=== PATIENT | male | born 1990 | race Caucasian/White ===

== ENCOUNTER 2017-12-11 18:11 | Emergency (ER) | payer SELFPAY ==
[~2017-12-11] VITALS: Ht 177.8 cm; Wt 115.7 kg
[2017-12-11 18:27] VITALS: BP 155/89
[2017-12-11] MEDS ORDERED: IBUPROFEN 800 MG TAB ONE (18:32)
--- NOTE | 2017-12-11 19:24 | NUR ---
27/M CAME IN W C/O SORE THROAT, POSTNASAL DISCHARGE, COUGHING AND FEVER X 2 DAYS. PT REPORTS FEVER OF 103.2 YESTERDAY AND HAS BEEN TAKING TYLENOL FOR CONTROL. CURRENTLY AFEBRILE. ALL LUNG SOUND CBTA, 20 RR EVEN AND UNLABORED. DENIES ANY OTHER PAIN, DENIES N/V/D, SOB/CP. DENIES OTHER PMH/RX/OTC
[2017-12-11] MEDS ORDERED: LIDOCAINE VISCOUS 2% 20 ML UDC PO ONE (19:40)
[2017-12-11] MEDS ORDERED: AMOXICILLIN 500 MG CAP PO ONE (19:40)
--- NOTE | 2017-12-11 20:09 | NUR ---
Patient discharged with v/s stable. Written and verbal after care instructions given and explained. Patient alert, oriented and verbalized understanding of instructions. Ambulatory with steady gait. All questions addressed prior to discharge. ID band removed. Patient advised to follow up with PMD. Rx of AMOXICILLIN, LIDOCAINE VISCOUOS SOLUTIIO AND MOTRIN given. Patient educated on indication of medication including possible reaction and side effects. Opportunity to ask questions provided and answered.
[2017-12-11 20:11] VITALS: BP 138/85
== END 2017-12-11 20:09 | disposition home or self-care (01) ==
LOC: MED 18:11
DX: J02.9 Acute pharyngitis, unspecified (principal); R50.9 Fever, unspecified; R11.10 Vomiting, unspecified
CPT/HCPCS: 36415; 87081; 87804; 99284

== ENCOUNTER 2022-12-06 20:20 | Emergency (ER) | payer MEDICAID ==
[~2022-12-06] VITALS: Ht 177.8 cm; Wt 108.9 kg
[2022-12-06 20:47] VITALS: BP 150/89
--- NOTE | 2022-12-06 20:50 | NUR ---
TO LOBBY A/W BED AMBULATORY
[2022-12-06 21:24] LABS: BASOPHILS # (AUTO) 0.1 K/uL (0.00-0.22); BASOPHILS % (AUTO) 0.6 % (0.0-2.0); EOSINOPHILS # (AUTO) 0.4 K/uL (0-0.4); EOSINOPHILS % (AUTO) 2.7 % (0.0-4.0); HEMATOCRIT 42.6 % (36-52); HEMOGLOBIN 14.1 g/dL (12.0-18.0); LYMPHOCYTES # (AUTO) 2.6 K/uL (2.0-11.5); LYMPHOCYTES % (AUTO) 19.4 % (20.5-51.1); MEAN CORPUSCULAR HEMOGLOBIN 29 pg (27-31); MEAN CORPUSCULAR HGB CONC 33 g/dL (33-37); MEAN CORPUSCULAR VOLUME 89.1 fL (80-94); MONOCYTES # (AUTO) 0.9 K/uL (0.8-1.0); MONOCYTES % (AUTO) 6.6 % (1.7-9.3); NEUTROPHILS # (AUTO) 9.6 K/uL (1.8-7.7); NEUTROPHILS % (AUTO) 70.7 % (42.2-75.2); PLATELET COUNT (AUTO) 340 K/uL (140-450); RED BLOOD CELL COUNT(AUTO) 4.78 MIL/uL (4.20-6.10); RED CELL DISTRIBUTION WIDTH 13.2 % (11.6-13.7); WHITE BLOOD COUNT (AUTO) 13.5 K/uL (4.8-10.8)
[2022-12-06 21:40] LABS: ALBUMIN 3.7 g/dL (3.4-5.0); ANION GAP 11.6 (8-16); CARBON DIOXIDE 30.2 mmol/L (21-32); POTASSIUM 3.8 mmol/L (3.5-5.1); TOTAL BILIRUBIN 0.2 mg/dL (0.0-1.0)
[2022-12-06 21:44] LABS: APPEARANCE,URINE CLEAR (CLEAR); BILIRUBIN,URINE NEGATIVE (NEGATIVE); BLOOD, URINE 1+ (NEGATIVE); COLOR,URINE YELLOW (YELLOW); LEUKOCYTE ESTERASE ,URINE NEGATIVE (NEGATIVE); NITRITE, URINE NEGATIVE (NEGATIVE); UGLUCOSE NEGATIVE (NEGATIVE)
--- NOTE | 2022-12-06 22:06 | NUR ---
Patient taken to bed 3.
[2022-12-06 22:10] LABS: RBC,URINE 0-5 /HPF (0-5)
[2022-12-06 22:11] LABS: WBC,URINE NONE SEEN /HPF (0-5)
--- NOTE | 2022-12-06 22:15 | NUR ---
Dr. Rodriguez examining patient.
[2022-12-06] MEDS ORDERED: KETOROLAC 15 MG/ML VIAL IM ONE (22:35)
--- NOTE | 2022-12-06 22:40 | NUR ---
X-Ray at bedside.
[2022-12-06] MEDS ORDERED: IBUP-2213 PO (22:43)
[2022-12-06 23:22] VITALS: BP 132/72
--- NOTE | 2022-12-06 23:27 | NUR ---
PATIENT STABLE VITALS SIGNS IN NORMAL LIMITS NOT COMPLAINING AOF PAIN AFTER TORADOL IM DC HOME STABLE ALL DC INSTRUTION GAVE AND EXPLAINED WE RECOMMEND TO FOLLOW UP WITH PCP OR COMING BACK TO ED IF THE SYMPTOMS GET WORSE OR DOESNT IMPROVING
== END 2022-12-06 23:27 | disposition home or self-care (01) ==
LOC: MED 20:20
DX: S30.1XXA Contusion of abdominal wall, initial encounter (principal); X58.XXXA Exposure to other specified factors, initial encounter; Y93.89 Activity, other specified; Y92.89 Other specified places as the place of occurrence of the external cause; Y99.8 Other external cause status
CPT/HCPCS: 36415; 72170; 80053; 81001; 83690; 85025; 96372; 99284; J1885; Q0092